=== PATIENT | male | born 1980 | race Two or more races ===

== ENCOUNTER 2025-01-25 15:01 | Emergency (ER) | payer SELFPAY ==
[2025-01-25 15:03] VITALS: BP 123/80; PULSE 93; RESP 20; TEMP 36.3; O2SAT 96; BMI 25.5
--- NOTE | 2025-01-25 15:33 | EDNOTE_ITS ---
ED Medical Clearance RME/HPI General Chief complaint: Medical Clearance Stated complaint: MEDICAL CLEARANCE Time Seen by Provider: 01/25/25 15:24 Arrival date/time: 01/25/25 15:01 Limitations: no limitations RME / HPI RME / HPI Narrative: 44 year old male with history of diabetes presents to the ED [facility] for medical clearance for evaluation. Per officer, while being triaged in the [facility], blood sugar was noted to be 494. While in the ED, patient has no complaints. Denies eating today. Reports he takes insulin 20 units once a day and last administered yesterday. Related Information Allergies Allergy/AdvReac Type Severity Reaction Status Date / Time No Known Allergies Allergy Verified 01/25/25 15:27 Review of Systems Review of Systems Systems Reviewed: All systems reviewed, normal except as documented Past Medical History Social History SMOKING STATUS: Never smoker ED Exam General Limitations: Present no limitations General appearance: Present alert and in no apparent distress Head Head exam: Present atraumatic, normocephalic and normal inspection Eye Eye exam: Present normal appearance, PERRL and EOMI ENT ENT exam: Present normal exam, normal oropharynx and mucous membranes moist Neck Neck exam: Present normal inspection, full ROM and trachea midline Chest Chest inspection: Present normal inspection and symmetric chest wall rise Respiratory Respiratory exam: Present normal lung sounds bilaterally Cardiovascular Cardiovascular exam: Present regular rate, normal rhythm and normal heart sounds Abdominal Exam Abdominal exam: Present soft and normal bowel sounds Extremities Exam Extremities exam: Present normal inspection and full ROM Back Exam Back exam: Present normal inspection and full ROM Neurological Exam Neurological exam: Present alert, oriented X3 and CN II-XII intact Psychiatric Psychiatric exam: Present normal affect and normal mood Skin Skin exam: Present warm, dry, intact and normal color Course Course Course Narrative: 1750: BS 222 Quality Measures none Orders Category Date Time Status IV [Insert IV] NOW Care 01/25/25 16:29 Active CBC Stat Lab 01/25/25 15:30 Completed CMP [Comprehensive Metabolic Panel] Stat Lab 01/25/25 15:30 Completed Ketone [Beta Hydroxybutyrate] Stat Lab 01/25/25 15:30 Completed Magnesium Stat Lab 01/25/25 15:30 Completed VBG [Venous Blood Gas] Stat Lab 01/25/25 15:30 Completed Insulin Regular Med 01/25/25 16:29 Discontinued 10 unit IV X1 ONE Vital Signs Vital signs: Vital Signs Temperature 97.4 F 01/25/25 15:03 Pulse Rate 93 01/25/25 15:03 Respiratory Rate 20 01/25/25 15:03 Blood Pressure 123/80 01/25/25 15:03 Pulse Oximetry (%) 96 01/25/25 15:03 Oxygen Delivery Method Room Air 01/25/25 15:03 Pulse ox is 96% on room air which is adequate. Medical Clearance MDM Narrative MDM Narrative:: Jing Ayala am scribing for and in the presence of Dr. Saldivar. Patient data External records reviewed:: None (No previous ED visits for review ) Clinical information provided by:: patient Social determinants that could affect healthcare access:: none Patient has the following chronic illnesses:: Diabetes How is presenting disease/condition affected by chronic disease/condition?: exacerbated by Evaluation data The following diagnostics were reviewed and interpreted by me:: lab results Lab and/or radiology exams considered but not ordered:: None Interpretation Summary: Glucose 505 otherwise unremarkable. Medications / Prescriptions Medications or Prescriptions considered but not ordered:: None Medication administrations:: Medication Administration History Discontinued Medications Insulin Human Regular (Insulin Hum Regular 1 Unit/0.01 Ml (Per Unit)) 10 unit IV X1 ONE Stop: 01/25/25 16:30 Last Admin: 01/25/25 16:50 Dose: 10 unit Documented By: XIMENA Co-signed By: FRANCESCA See above Consultations Consultation(s) initiated? (list below): No Diagnosis Medical Clearance Differential Diagnosis: other (Hyperglycemia, DKA, encounter for medical clearance for incarceration ) Most likely diagnosis given after review of the tests above:: Acute hyperglycemia Admission Indicated Admission indicated?: not indicated Admission Request Was there a request for admission?: No Disposition Plan Disposition Plan: Discharge Discharge Attestation Discharge Attestation: The patient and all family members were given an opportunity to ask questions and understood the discharge instructions. Discharge instructions specifically effects, indications for sooner follow up or return to the emergency department, and the expected course of current diagnosis. Patient condition: Stable Discharge Plan Plan Patient Disposition: [facility]/Court/Law Discharge Disposition comment: Stable for discharge into police custody Patient condition on transfer: Stable Prescriptions/Referrals Referrals: Family [facility] [Provider Group] - In 1 week Problem List Clinical Impression: Acute hyperglycemia Patient/Caregiver Discharge Instructions Discharge Activity: activity as tolerated Education Materials: High Blood Sugar (Hyperglycemia), ED Diabetes with High Blood Sugar Additional Instructions: Please return to the emergency department if you have any worsening or any further medical problems. Otherwise you should follow-up with your primary care doctor within the next several days Print Language: Vietnamese Stand Alone Forms: Roya Award Info., Patient Portal Info Letter
[2025-01-25 15:45] LABS: Base Excess, Venous 0 (-3-3); O2 Saturation, Venous 89 % (96-97); PCO2, Venous 41 mmHg (36-56); PO2, Venous 58 mmHg (15-58); pH, Venous 7.39 (7.33-7.66)
[2025-01-25 15:59] LABS: Basophils # (Auto) 0.0 Thou/mm3 (0.0-0.2); Basophils % (Auto) 0 % (0-2.5); Eosinophils # (Auto) 0.1 Thou/mm3 (0.0-0.5); Eosinophils % (Auto) 1 % (0-10); Hematocrit 45.5 % (41.0-53.0); Hemoglobin 15.4 g/dL (13.5-16.0); Immature Granulocytes Auto 0.03 Thou/mm3 (0.00-0.00); Lymphocytes # (Auto) 1.3 Thou/mm3 (1.0-4.8); Lymphocytes % (Auto) 16 % (10-50); Mean Corpuscular HGB Conc 33.8 g/dl (31.0-37.0); Mean Corpuscular Hemoglobin 27.6 pg (25.0-35.0); Mean Corpuscular Volume 82 fL (80-100); Monocytes # (Auto) 0.4 Thou/mm3 (0.0-0.8); Monocytes % (Auto) 5 % (0-12); Neutrophils # (Auto) 6.2 Thou/mm3 (1.8-7.7); Neutrophils % (Auto) 77 % (37-80); Nucleated Red Blood Cell # 0.00 Thou/mm3 (0.00-0.00); Nucleated Red Blood Cell % 0 /100 WBC (0); Platelet Count 264 Thou/mm3 (140-440); RDW Standard Deviation 37.3 fL (35.1-43.9); Red Blood Count 5.58 Miln/mm3 (4.50-5.90); White Blood Count 8.1 Thou/mm3 (3.8-10.6)
[2025-01-25 16:05] LABS: Beta Hydroxybutyrate 0.2 mmol/L (<0.6)
[2025-01-25 16:12] LABS: Alanine Aminotransferase 18 U/L (10-49); Albumin, Serum 4.6 gm/dL (3.5-5.0); Albumin/Globulin Ratio 1.6 (1.2-2.2); Alkaline Phosphatase 177 U/L (46-116); Anion Gap 9 (7-16); Aspartate Amino Transferase 15 U/L (0-34); BUN/Creatinine Ratio 15 Ratio (12-20); Bilirubin,Total 0.5 mg/dL (0.3-1.2); Blood Urea Nitrogen 17 mg/dL (9-23); Calcium 9.8 mg/dL (8.3-10.6); Calcium (Corrected) 9.8 mg/dL (8.5-10.1); Carbon Dioxide 25.3 mMol/L (20.0-31.0); Chloride 100 mMol/L (98-107); Creatinine (Component) 1.1 mg/dL (0.6-1.3); Estimated Creatinine Clearance 85.7 mL/min (>60); Globulin 2.9 gm/dL (2.3-3.5); Magnesium 1.7 mg/dL (1.6-2.6); Osmolality,Calculated 292 (275-295); Potassium 4.4 mMol/L (3.4-5.1); Sodium 134 mMol/L (136-145); Total Protein 7.5 gm/dL (5.7-8.2); eGFR > 60 See Note
[2025-01-25 16:17] LABS: Glucose 505 mg/dL (74-106)
[2025-01-25] MEDS: INSULIN HUM REGULAR 1 UNIT/0.01 ML (PER UNIT) 10 UNIT IV (16:50)
[2025-01-25 17:07] VITALS: BP 118/76; PULSE 83; RESP 17; TEMP 36.4; O2SAT 98
[2025-01-25 18:40] VITALS: BP 104/71; PULSE 93; RESP 18; TEMP 36.3; O2SAT 98
== END 2025-01-25 18:45 ==
PROVIDERS: Emergency Provider Emergency Medicine
DX: Z02.89 Encounter for other administrative examinations (principal); R73.9 Hyperglycemia, unspecified
CPT/HCPCS: 36415; 80053; 82010; 82803; 83735; 85025; 99283; J1815